=== PATIENT | female | born 2000 | race Caucasian/White ===

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

== ENCOUNTER → 2019-05-04 | Outpatient (CLI) | payer BC, OTHER ==
[~2019-05-04] VITALS: Ht 175.3 cm; Wt 83.9 kg
[~2019-05-04] MED LIST: SINCALIDE 1.68 MCG in IV NORMAL SALINE 50ML 30 ML IV ONE
--- NOTE | 2019-05-04 13:41 | RAD ---
HEPATOBILIARY SCAN WITH EJECTION FRACTION 05/04/2019 1:38 PM History: RUQ ABD pain x 2 months 5.5mci 99mTc Choletec
1.68mCg Kinevac for EF Procedure: Serial static images are obtained of the liver and biliary system in the frontal projection following IV administration of 5.5 mCi of Technetium 99m Choletec. After filling of the gallbladder, 1.60 mcg of sincalide were infused over 30 minutes and dynamic imaging continued over this period. The gallbladder ejection fraction was calculated. Findings: There is prompt hepatic clearance of tracer from the blood pool. There is homogeneous distribution throughout the liver. The gallbladder ejection fraction measures 61% (normal gallbladder EF is 35% or greater). IMPRESSION: 1. The cystic duct and common bile duct are patent. Negative for acute cholecystitis. 2. The gallbladder ejection fraction is normal Electronically signed by: Vamshi Mcallister MD (05/04/2019 1:38 PM) [id number]
== END | disposition home or self-care (01) ==
LOC: NM 15:19
PROVIDERS: ATTEND Internal Medicine Gastroenterology
DX: R10.11 Right upper quadrant pain (principal); I10 Essential (primary) hypertension; E11.9 Type 2 diabetes mellitus without complications; G40.909 Epilepsy, unspecified, not intractable, without status epilepticus; Z87.891 Personal history of nicotine dependence; Z95.0 Presence of cardiac pacemaker; Z79.01 Long term (current) use of anticoagulants
CPT/HCPCS: 78227; A9537; J2805

== ENCOUNTER 2020-03-03 20:06 | Emergency (ER) | payer BC, OTHER ==
[~2020-03-03] VITALS: Ht 172.7 cm; Wt 81.8 kg
[2020-03-03 21:34] VITALS: BP 150/80
[2020-03-03] MEDS ORDERED: PENI500T PO (22:35)
[2020-03-03] MEDS ORDERED: HYDR-2761 PO (22:35)
--- NOTE | 2020-03-03 22:36 | PHYS DOC ---
Past Medical History Past Medical History: Anxiety, Other Additional Past Medical Histor: BIPOLAR Past Surgical History: Cholecystectomy Smoking Status: Current Every Day Smoker Alcohol Use: None General Adult EDM: Chief Complaint: TOOTH ACHE OR PAIN HPI: HPI: Patient is a 19 year old female who presents emergency department with complaints of right upper front tooth pain since yesterday. She denies any injury, fever, sore throat, swollen glands, ear pain, or dysphasia. The patient states that she wears a tongue ring but denies any injury to the tooth. She states she has been taking ibuprofen and Tylenol with no relief of her pain. She currently rates pain 10 out of 10 on pain scale, she denies any alleviating or exacerbating factors. Patient denies any radiation of the pain. Review of Systems: Review of Systems: Complete ROS is negative unless otherwise stated in the HPI. Heart Score: Risk Factors: Risk Factors: DM, Current or recent (<one month) smoker, HTN, HLP, family history of CAD, obesity. Risk Scores: Score 0 - 3: 2.5% MACE over next 6 weeks - Discharge Home Score 4 - 6: 20.3% MACE over next 6 weeks - Admit for Clinical Observation Score 7 - 10: 72.7% MACE over next 6 weeks - Early Invasive Strategies Current Medications: Current Medications Medications (Trade) Dose Ordered Sig/Donnell Start Time Stop Time Status Last Admin Dose Admin Acetaminophen/ Hydrocodone Bitart (Lortab 5/325) 1 tab 1X ONCE 03/03/20 23:00 03/03/20 23:01 Allergies: Allergies: Allergies Coded Allergies Type Severity Reaction Last Updated Verified No Known Drug Allergies 05/04/19 No Physical Exam: PE: Constitutional: Well developed, well nourished, appears uncomfortable, tears present, non-toxic appearance. [] HENT: Normocephalic, atraumatic, bilateral external ears normal, nose normal; tenderness to palpation of the gingival area around the right front tooth, no visible fracture, no gingival erythema, no visible or palpable dental abscess [] Eyes: PERRLA, EOMI, conjunctiva normal, no discharge. [] Neck: Normal range of motion, nontender, supple no stridor. [] Cardiovascular:Heart rate regular rhythm Lungs & Thorax: Respirations even and unlabored, no retractions, no respiratory distress Skin: Warm, dry, no erythema, no rash. [] Extremities: No cyanosis, ROM intact, no edema. [] Neurologic: Alert and oriented X 3, no focal deficits noted. [] Psychologic: Affect normal, judgement normal, mood normal. [] Current Patient Data: Vital Signs: Vital Signs Date Time Temp Pulse Resp B/P (MAP) Pulse Ox O2 Delivery O2 Flow Rate FiO2 03/03/20 21:34 98.4 83 22 150/80 (103) 99 Room Air 98.4 EKG: EKG: [] Radiology/Procedures: Radiology/Procedures: [] Course & Med Decision Making: Course & Med Decision Making Pertinent Labs and Imaging studies reviewed. (See chart for details) [] Dragon Disclaimer: Dragon Disclaimer: This electronic medical record was generated, in whole or in part, using a voice recognition dictation system. Departure Departure Impression: Primary Impression: Dentalgia Disposition: 01 DC HOME SELF CARE/HOMELESS Condition: STABLE Referrals: NO PCP (PCP) Patient Instructions: Dental Pain, [id number] Additional Instructions: Fill the prescription and take as directed. Call your dentist first thing in the morning to schedule repeat exam. Return to the ER if fever develops or symptoms worsen. Scripts Hydrocodone Bit/Acetaminophen (HYDROCODONE-APAP 5-325 ) 1 Tab Tablet 0.5-1 TAB PO PRN Q6HRS PRN for SEVERE PAIN 7-10, #4 TAB 0 Refills Prov: CYNDI BARON SECTION REPAIRER 03/03/20 Penicillin V Potassium (PENICILLIN V POTASSIUM) 500 Mg Tablet 1 TAB PO QID for 10 Days, #40 TAB 0 Refills Prov: CYNDI BARON SECTION REPAIRER 03/03/20 CYNDI BARON SECTION REPAIRER Mar 03, 2020 22:36
[2020-03-03] MEDS ORDERED: HYDROcodone/APAP 5/325MG 1 TAB TABLET PO ONE (23:00)
== END 2020-03-03 22:54 | disposition home or self-care (01) ==
LOC: ER 20:06
DX: K08.89 Other specified disorders of teeth and supporting structures (principal); F41.9 Anxiety disorder, unspecified; F17.200 Nicotine dependence, unspecified, uncomplicated; F31.9 Bipolar disorder, unspecified; Z90.49 Acquired absence of other specified parts of digestive tract
CPT/HCPCS: 99283